=== PATIENT | male | born 1970 | race African-American/Black ===

== ENCOUNTER 2020-12-08 02:37 | Emergency (ER) | payer BC ==
[~2020-12-08] VITALS: Ht 180.3 cm; Wt 124.7 kg
[2020-12-08] MEDS ORDERED: COZAAR 25 MG TA25 MG PO (02:39)
[2020-12-08] MEDS ORDERED: HYDROCHLOROTHIA25 M1 PO (02:39)
[2020-12-08 04:32] VITALS: BP 143/92
== END 2020-12-08 04:34 | disposition home or self-care (01) ==
LOC: ER 02:37
DX: M79.662 Pain in left lower leg (principal); I10 Essential (primary) hypertension; Z79.899 Other long term (current) drug therapy; Z88.8 Allergy status to other drugs, medicaments and biological substances